=== PATIENT | male | born 1965 | race Caucasian/White ===

== ENCOUNTER 2017-05-16 08:03 | Day surgery (SDC) | payer OTHER ==
[~2017-05-16] VITALS: Ht 175.3 cm; Wt 79.0 kg
[~2017-05-16 08:03] MED LIST: CYANOCOBALAM1000 MCG PO; FISH OIL 1,0001 EAC7 PO; KEPPRA500 MG PO; VITAMIN D2000 UNIT PO
[2017-05-16 08:33] VITALS: BP 129/71
[2017-05-16] MEDS ORDERED: NORCO 5/3251 TABLET PO (12:55)
[2017-05-16 13:42] VITALS: BP 135/72
[2017-05-16 14:30] VITALS: BP 141/71
== END 2017-05-16 14:30 | disposition home or self-care (01) ==
LOC: SDC 08:03 → NUC 09:00 → SDC 14:30
PROC: 07BJ0ZX Excision of Left Inguinal Lymphatic, Open Approach, Diagnostic (ICD-10-PCS; principal; 2017-05-16)
DX: C43.72 Malignant melanoma of left lower limb, including hip (principal); E78.1 Pure hyperglyceridemia; R73.03 Prediabetes; E55.9 Vitamin D deficiency, unspecified; Z80.3 Family history of malignant neoplasm of breast; Z80.1 Family history of malignant neoplasm of trachea, bronchus and lung; Z88.0 Allergy status to penicillin; Z87.891 Personal history of nicotine dependence
CPT/HCPCS: 78195; 78999; 88307; 88341 TC; 88342 TC; A9541; J0690; J1100; J2250; J2405; J3010